=== PATIENT | female | born 1960 | race Caucasian/White ===

== ENCOUNTER 2016-08-08 11:04 | Emergency (ER) | payer MEDICARE, MEDICAID ==
--- NOTE | 2016-08-08 11:44 | Emergency Department Record ---
History of Present Illness - General Chief complaint: Dental Stated complaint: DENTAL/JAW PAIN Time Seen by Provider: 08/08/16 11:38 Source: Patient Mode of Arrival: Ambulatory Limitations: No limitations - History of Present Illness Initial comments: 56 yo female presents to ED with worsening pain to the lower right jaw. Patient reports that her pain symptoms have been present for several months associated with swelling of the right anterio-lateral neck. Patient reports undergoing imaging of the neck in April, was referred to ENT in [place] but she has cancelled her appointments x 2 because she was "scared". Patient denies health problems at her baseline, but reports that her pain symptoms have gotten worse prompting visit to the ED today. MD complaint: Other (dental/jaw pain) Onset/Timin -: Month(s) Location: Tooth # Severity: Moderate Severity scale (1-10): 8 Quality: Sharp Consistency: Constant Improves with: None Worsens with: None Context- Dental: History of dental caries - Related Data Previous Rx's Medication Instructions Recorded Clindamycin HCl [Cleocin HCl] 300 mg PO QID #28 capsule 08/08/16 Hydrocodone/Acetaminophen [[place] 1 tab PO Q6H PRN #15 tab 08/08/16 7.5mg/325mg] Allergies Allergy/AdvReac Type Severity Reaction Status Date / Time No Known Drug Allergies Allergy Verified 02/27/16 15:40 Travel Screening - Travel/Exposure Within Last 30 Days Have you traveled within the last 30 days?: No Review of Systems Constitutional: Denies: Chills, Fever, Malaise, Night sweats Eyes: Denies: Eye discharge, Eye pain ENT: Reports: Dental pain. Denies: Congestion, Ear pain Respiratory: Denies: Cough, Dyspnea Cardiovascular: Denies: Chest pain, Dyspnea on exertion Endocrine: Denies: Fatigue, Heat or cold intolerance Gastrointestinal: Denies: Abdominal pain, Nausea, Vomiting Genitourinary: Denies: Dysuria, Frequency, Hematuria, Incontinence Musculoskeletal: Denies: Arthralgia, Back pain Skin: Denies: Bruising, Change in color Neurological: Denies: Abnormal gait, Confusion, Headache, Seizure Psychiatric: Denies: Anxiety Hematological/Lymphatic: Denies: Anemia, Blood Clots Past Medical History - SOCIAL HISTORY Smoking Status: Current every day smoker Alcohol Use: None Drug Use: None - RESPIRATORY Hx Respiratory Disorders: No - CARDIOVASCULAR Hx Cardio Disorders: No - NEURO Hx Neuro Disorders: No - GI Hx GI Disorders: No - Hx Genitourinary Disorders: No - ENDOCRINE Hx Diabetes: No Hx Thyroid Disease: No - MUSCULOSKELETAL Hx Musculoskeletal Disorders: No - PSYCH Hx Psych Problems: Yes Hx Anxiety: Yes Hx Depression: Yes Comment:: bi-polar - HEMATOLOGY/ONCOLOGY Hx Hematology/Oncology Disorders: No Family Medical History Any Significant Family History?: Yes Hx Cancer: Grandparents Physical Exam - General General Appearance: Alert, Oriented x3, Cooperative, Moderate distress, Anxious , Other (cachetic appearing) Limitations: No limitations - Head Head exam: Atraumatic, Normocephalic Head exam detail: negative: Abrasion, Contusion, Dunn's sign, General tenderness, Hematoma, Laceration - Eye Eye exam: Normal appearance. negative: Conjunctival injection, Periorbital swelling, Periorbital tenderness, Scleral icterus - ENT ENT exam: Mucous membranes moist Ear exam: negative: Auricular hematoma, Auricular trauma Nasal Exam: negative: Active bleeding, Discharge, Dried blood, Foreign body Mouth exam: negative: Drooling, Laceration, Muffled voice, Tongue elevation Teeth exam: Dental caries, Other (Enlargement of the gingival tissue to the right lower oral cavity both anterior and posterior to the teeth extending along the mandible posteriorly, numerous dental caries are present.) Throat exam: negative: Tonsillar erythema, Tonsillomegaly, R peritonsillar mass , L peritonsillar mass - Neck Neck exam: Lymphadenopathy, Other (Extensive lymphadenopathy to the right anterior cervical region c/w mass or lesion). negative: Meningismus - Respiratory Respiratory exam: Normal lung sounds bilaterally. negative: Rales, Respiratory distress, Rhonchi, Stridor - Cardiovascular Cardiovascular Exam: Normal rhythm, Normal heart sounds, Tachycardia - GI/Abdominal GI/Abdominal exam: Soft. negative: Rebound, Rigid, Tenderness - Rectal Rectal exam: Deferred - exam: Deferred - Extremities Extremities exam: negative: Calf tenderness, Pedal edema, Tenderness - Back Back exam: Denies: CVA tenderness (R), CVA tenderness (L) - Neurological Neurological exam: Alert, Normal gait, Oriented X3 - Psychiatric Psychiatric exam: Anxious - Skin Skin exam: Normal color. negative: Abrasion Type of lesion: negative: abrasion Course Vital Signs 08/08/16 11:08 Temperature 98.7 F Pulse Rate 118 H Respiratory 24 Rate Blood Pressure 148/122 Pulse Ox 95 - Reevaluation(s) Reevaluation #1: 08/08/16 11:39 CT Neck with Contrast: 04/26/16 1.9 cm pathologic lymph node Asymmetry to the right posterior tongue base raising the suspicion for malignancy Findings c/w endodontal disease Patient seen and examined, recommended the patient call her ENT tomorroow to reschedule her biopsy of the right oral lesions. Will prescribe [place] and Clindamycin for possible dental abscess as well. Patient appears stable for discharge at this time. 08/08/16 11:59 Disposition Disposition: Discharge Clinical Impression: Mass of oral cavity Disposition: Home, Self-Care Condition: (2) Stable Instructions: Dental Abscess (ED) Additional Instructions: Return to ED if yoru symptoms worsen or if you have any concerns. Clindamycin and [place] as directed. Follow-up with your ENT in 1-3 days without fail for biopsy of your oral mass. Prescriptions: Clindamycin HCl [Cleocin HCl] 300 mg PO QID #28 capsule Hydrocodone/Acetaminophen [[place] 7.5mg/325mg] 1 tab PO Q6H PRN #15 tab PRN Reason: Pain - General Forms: Patient Portal Access Time of Disposition: 11:45
== END 2016-08-08 11:50 | disposition home or self-care (01) ==
LOC: ER 11:04
DX: K14.8 Other diseases of tongue (principal); Z72.0 Tobacco use
CPT/HCPCS: 99283

== ENCOUNTER 2016-09-14 20:35 | Emergency (ER) | payer MEDICARE, MEDICAID ==
--- NOTE | 2016-09-14 20:50 | Emergency Department Record ---
History of Present Illness - General Chief complaint: Pain Stated complaint: MOUTH PAIN Source: Patient, Family Mode of Arrival: Ambulatory Limitations: No limitations - History of Present Illness Initial comments: 56 yo female presents with a pain in the jaw for about a year and a half. The patient finally was referred to and ENT at [facility]. She was diagnosed with an oral squamous cell cancer. She is waiting for an appointment at [facility]. She has run out of her pain medications that she takes for the ongoing chronic pain. No fevers. She has chronic pain with touching the area or swallowing. No facial redness or pus drainage. Her PCP is in [place]. She has not seen her doctor for pain medications. Her ENT prescribed the Tramadol and Ibuprofen. MD Complaint: Other (jaw pain) -: Month(s) Location: Other (Jaw) Radiation: None Quality: Aching Consistency: Constant Improves with: Nothing Worsens with: Other (Eating) Associated Symptoms: Denies other symptoms - Related Data Home Medications Medication Instructions Recorded Confirmed Last Taken Ibuprofen [Ibuprofen] 800 mg PO TID 09/14/16 09/14/16 Unknown Tramadol HCl [Tramadol HCl] 50 mg PO Q6H 09/14/16 09/14/16 Unknown Previous Rx's Medication Instructions Recorded Ibuprofen [Motrin] 800 mg PO Q8H PRN #90 tab 09/14/16 Tramadol HCl 50 mg PO Q8H #90 tab 09/14/16 Allergies Allergy/AdvReac Type Severity Reaction Status Date / Time No Known Drug Allergies Allergy Verified 02/27/16 15:40 Review of Systems Constitutional: Denies: Chills, Fever, Malaise, Weakness Eyes: Denies: Eye discharge, Eye pain, Photophobia, Vision change ENT: Reports: Dental pain. Denies: Congestion, Ear pain, Epistaxis, Hearing loss, Throat pain Respiratory: Denies: Cough, Dyspnea, Hemoptysis, Stridor, Wheezes Cardiovascular: Denies: Chest pain, Palpitations, Syncope Endocrine: Denies: Fatigue, Polydipsia, Polyuria Gastrointestinal: Denies: Abdominal pain, Diarrhea, Nausea, Vomiting Genitourinary: Denies: Dysuria, Urgency Musculoskeletal: Denies: Arthralgia, Back pain, Joint swelling, Myalgia, Neck pain Skin: Denies: Bruising, Change in color, Rash Neurological: Denies: Headache Psychiatric: Denies: Anxiety Hematological/Lymphatic: Denies: Blood Clots, Easy bleeding, Easy bruising, Swollen glands Past Medical History - SOCIAL HISTORY Smoking Status: Current every day smoker Drug Use: None - RESPIRATORY Hx Respiratory Disorders: No - CARDIOVASCULAR Hx Cardio Disorders: No - NEURO Hx Neuro Disorders: No - GI Hx GI Disorders: No - Hx Genitourinary Disorders: No - ENDOCRINE Hx Diabetes: No Hx Thyroid Disease: No - MUSCULOSKELETAL Hx Musculoskeletal Disorders: No - PSYCH Hx Psych Problems: Yes Hx Anxiety: Yes Hx Depression: Yes Comment:: bi-polar - HEMATOLOGY/ONCOLOGY Hx Hematology/Oncology Disorders: No Family Medical History Hx Cancer: Grandparents Physical Exam - General General Appearance: Alert, Oriented x3, Cooperative, No acute distress Limitations: No limitations - Head Head exam: Normal inspection - Eye Eye exam: Normal appearance, PERRL - ENT ENT exam: Mucous membranes moist. negative: Normal exam, Normal orophraynx Ear exam: Normal external inspection. negative: External canal tenderness Nasal Exam: Normal inspection. negative: Discharge, Sinus tenderness Mouth exam: Normal external inspection, Tongue normal. negative: Drooling, Laceration, Muffled voice, Tongue elevation Teeth exam: Gingival enlargement, Other (Gingival enlargement right frontal area , no pus, no facial redness, right sided palpable lymph node that is palpable and chronic per patient). negative: Normal inspection Throat exam: Normal inspection. negative: Tonsillar erythema, Tonsillar exudate - Neck Neck exam: Lymphadenopathy, Tenderness. negative: Normal inspection, Meningismus - Respiratory Respiratory exam: Normal lung sounds bilaterally. negative: Respiratory distress - Cardiovascular Cardiovascular Exam: Regular rate, Normal rhythm, Normal heart sounds - GI/Abdominal GI/Abdominal exam: Soft. negative: Tenderness - Rectal Rectal exam: Deferred - exam: Deferred - Extremities Extremities exam: Normal inspection, Full ROM, Normal capillary refill. negative: Tenderness - Back Back exam: Reports: Normal inspection, Full ROM. Denies: Muscle spasm, Rash noted, Tenderness - Neurological Neurological exam: Alert, Normal gait, Oriented X3, Reflexes normal - Psychiatric Psychiatric exam: Normal affect, Normal mood - Skin Skin exam: Dry, Intact, Normal color, Warm Course Vital Signs 09/14/16 20:42 Pulse Rate [ 118 H Pulse Ox Probe] Respiratory 20 Rate Blood Pressure 127/106 [Left Arm] Pulse Ox 98 - Reevaluation(s) Reevaluation #1: I discussed refilling the pain medications with the patient and close follow up with her PCP I also discussed as her disease progresses she will need to consider presenting to the [facility] as well given that is were her treatment and specialist are located 09/14/16 20:50 Disposition Disposition: Discharge Clinical Impression: Mass of oral cavity Disposition: Home, Self-Care Condition: (1) Good Additional Instructions: Call [facility] tomorrow for your appointment time Return or go to [facility] if worsening symptoms or swelling Call your doctor tomorrow to coordinate you referral and your manager terminal pain control Prescriptions: Ibuprofen [Motrin] 800 mg PO Q8H PRN #90 tab PRN Reason: Pain - General Tramadol HCl 50 mg PO Q8H #90 tab Forms: Patient Portal Access Time of Disposition: 20:53
[2016-09-14] MEDS ORDERED: ONDANSETRON 4 MG ODT TABLET SL ONE (20:51)
[2016-09-14] MEDS ORDERED: HYDROMORPHONE HCL 1 MG/ML CPJ IM ONE (20:51)
== END 2016-09-14 21:38 | disposition home or self-care (01) ==
LOC: ER 20:35
DX: R22.0 Localized swelling, mass and lump, head (principal); R68.84 Jaw pain; C76.0 Malignant neoplasm of head, face and neck; F17.210 Nicotine dependence, cigarettes, uncomplicated
CPT/HCPCS: 99283 ×2; 96372; J1170

== ENCOUNTER 2016-12-09 18:29 | Emergency (ER) | payer MEDICARE, MEDICAID ==
[2016-12-09] MEDS ORDERED: FENTANYL PF 100MCG/2ML VIAL IVP ONE ×2 (18:39→22:20)
[2016-12-09] MEDS ORDERED: 0.9 % SODIUM CHLORIDE 1,000 ML BAG IV ONE (18:39)
[2016-12-09] MEDS ORDERED: ONDANSETRON HCL IV 4 MG/2 ML VIAL IVP ONE (18:39)
[2016-12-09] MEDS ORDERED: AMPICILLIN SODIUM/SULBACTAM NA 3 G in 0.9 % SODIUM CHLORIDE 100ML 100 ML IVPB ONE (18:46)
--- NOTE | 2016-12-09 18:46 | Emergency Department Record ---
History of Present Illness - General Chief complaint: Abscess Stated complaint: PAIN, POSS ABSCESS Time Seen by Provider: 12/09/16 18:38 Source: Patient, EMS Mode of Arrival: Ambulatory Limitations: No limitations - History of Present Illness Initial comments: 56 yo female presents with pain, facial swelling, drainage, redness. She has a known squamous cell cancer of the face that was diagnosed at [facility] after a prolonged time of neglecting the swelling by the patient. She was referred to oncology. She is getting a new PCP in [place]. She does not know her new PCP, she does not know any names of her specialist and does not have that information. She does say she was supposed to start radiation at [facility] but did not. She has had about 3 days of drainage from the the chin with pus. She was admitted to [facility] in September. complaint: Abscess/boil, Other -: Month(s) Location: Head, Face Severity: Severe Quality: Aching Consistency: Constant Improves with: None Associated symptoms: Chills, Other (Drainage from the cancer site) - Related Data Home Medications Medication Instructions Recorded Confirmed Last Taken Ibuprofen [Ibuprofen] 800 mg PO TID 09/14/16 12/09/16 Unknown Tramadol HCl [Tramadol HCl] 50 mg PO Q6H 09/14/16 12/09/16 Unknown Fentanyl 1 each TD ASDIR 12/09/16 12/09/16 Unknown Previous Rx's Medication Instructions Recorded Ibuprofen [Motrin] 800 mg PO Q8H PRN #90 tab 09/14/16 Tramadol HCl 50 mg PO Q8H #90 tab 09/14/16 Allergies Allergy/AdvReac Type Severity Reaction Status Date / Time No Known Drug Allergies Allergy Verified 12/09/16 19:04 Review of Systems Constitutional: Reports: Chills, Malaise Eyes: Denies: Eye discharge, Eye pain, Photophobia, Vision change ENT: Reports: As per HPI, Dental pain. Denies: Congestion, Ear pain, Epistaxis , Throat pain Respiratory: Denies: Cough, Dyspnea, Hemoptysis Cardiovascular: Denies: Chest pain, Palpitations, Syncope Endocrine: Denies: Fatigue Gastrointestinal: Denies: Abdominal pain, Diarrhea, Nausea, Vomiting Genitourinary: Denies: Dysuria, Urgency Musculoskeletal: Denies: Arthralgia, Back pain, Myalgia Skin: Reports: As per HPI, Change in color, Rash Neurological: Denies: Confusion, Headache, Numbness, Weakness Psychiatric: Denies: Anxiety Hematological/Lymphatic: Denies: Blood Clots, Easy bleeding, Easy bruising Past Medical History - SOCIAL HISTORY Smoking Status: Current every day smoker Drug Use: None - RESPIRATORY Hx Respiratory Disorders: No - CARDIOVASCULAR Hx Cardio Disorders: No - NEURO Hx Neuro Disorders: No - GI Hx GI Disorders: No - Hx Genitourinary Disorders: No - ENDOCRINE Hx Diabetes: No Hx Thyroid Disease: No - MUSCULOSKELETAL Hx Musculoskeletal Disorders: No - PSYCH Hx Psych Problems: Yes Hx Anxiety: Yes Hx Depression: Yes Comment:: bi-polar - HEMATOLOGY/ONCOLOGY Hx Hematology/Oncology Disorders: No Family Medical History Hx Cancer: Grandparents Physical Exam - General General Appearance: Alert, Oriented x3, Cooperative, No acute distress, Anxious Limitations: No limitations - Head Head exam: Atraumatic. negative: Normal inspection - Eye Eye exam: Normal appearance. negative: Conjunctival injection - ENT ENT exam: Mucous membranes dry. negative: Normal exam, Mucous membranes moist, Normal orophraynx (moderate jaw swelling, warmth, erythema, chin with 2cm abscess like area with pus) Ear exam: Normal external inspection Nasal Exam: Normal inspection. negative: Discharge, Sinus tenderness Mouth exam: Tongue normal. negative: Normal external inspection Teeth exam: negative: Normal inspection Throat exam: negative: Normal inspection - Neck Neck exam: Lymphadenopathy. negative: Normal inspection - Respiratory Respiratory exam: Normal lung sounds bilaterally. negative: Respiratory distress - Cardiovascular Cardiovascular Exam: Regular rate, Normal rhythm, Normal heart sounds - GI/Abdominal GI/Abdominal exam: Soft. negative: Tenderness - Rectal Rectal exam: Deferred - exam: Deferred - Extremities Extremities exam: Normal inspection, Full ROM, Normal capillary refill. negative: Tenderness - Back Back exam: Reports: Normal inspection, Full ROM. Denies: Muscle spasm, Rash noted, Tenderness - Neurological Neurological exam: Alert, Normal gait, Oriented X3 - Psychiatric Psychiatric exam: Normal affect, Normal mood - Skin Skin exam: Dry, Intact, Normal color, Warm Course - Reevaluation(s) Reevaluation #1: 12/09/16 19:00 [facility] Records reviewed from 09/23/16 Dr [facility] summary. Squamous Cell Cancer 12/09/16 22:02 Reevaluation #2: The labs were reviewed The WBC count is 13.2 and the CRP is elevated at 5 GFR >60 12/09/16 19:28 Reevaluation #3: CT reviewed Significant destructive lesion of the jaw, significant inflammatory changes and possible necrotic areas as well. May represent abscess. [facility] Call Called. 12/09/16 21:38 Reevaluation #4: I SW with [facility] ER to Dr Crook. 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, Abscess, Cellulitis and abscess of face Disposition: Acute Care Hospital Transfer Transfer To: [facility] Reason For Transfer: Facial Cancer, Facial abscess Accepting Physician: Ambreen Time Discussed w/Accepting Physician: 22:11 Condition: (2) Stable Forms: Patient Portal Access Time of Disposition: 22:11 Quality - Quality Measures Quality Measures: N/A - Blood Pressure Screening View Details: Yes Does Patient Have Any of the Following: No Blood Pressure Classification: Hypertensive Reading Systolic Measurement: 146 Diastolic Measurement: 78 Screening for High Blood Pressure: < Pre-Hypertensive BP, F/U Documented > [ [id number]] Pre-Hypertensive Follow-up Interventions: Referral to alternative/primary care provider.
[2016-12-09 19:03] LABS: BASO % 0.2 % (0-6); HEMATOCRIT 36.4 % (35.0-47.0); HEMOGLOBIN 11.8 gm/dl (11.6-16.0); MEAN CELL VOLUME 86.1 fl (81-97); MEAN CORPUSCULAR HEMOGLOBIN 27.9 pg (27-33); MEAN CORPUSCULAR HGB CONC 32.4 g/dl (32-36); MEAN PLATELET VOLUME 9.1 fl (7.4-10.4); MONO % 4.8 % (0-9); PLATELET COUNT 550 K/uL (130-400); RED BLOOD COUNT 4.23 M/uL (3.80-5.40); RED CELL DISTRIBUTION WIDTH 14.1 % (11.5-14.5); WHITE BLOOD COUNT W/O DIFF 13.2 K/uL (4.2-12.2)
[2016-12-09 19:18] LABS: INR 1.08; PARTIAL THROMBOPLASTIN TIME 30.7 SECONDS (24.5-39.1); PROTHROMBIN TIME (PATIENT) 11.7 SECONDS (9.5-12.1)
[2016-12-09 19:19] LABS: ALB/GLOB RATIO 1.1 (1.1-1.8); ALBUMIN 4.3 gm/dL (3.5-5.0); ALKALINE PHOSPHATASE 96 U/L (38-126); ALT/SGPT 35 U/L (9-52); ANION GAP 13.9 (7-16); AST/SGOT 19 U/L (14-36); BILIRUBIN,TOTAL 0.54 mg/dL (0.2-1.3); BLOOD UREA NITROGEN 11 mg/dL (7-17); CARBON DIOXIDE 20.1 mmol/L (22-30); CREATININE 0.5 mg/dL (0.52-1.04); EST GLOMERULAR FILTRATION RATE > 60 ml/min; GLUCOSE,RANDOM 119 mg/dL (70-110); TOTAL PROTEIN 8.2 gm/dL (6.3-8.2)
--- NOTE | 2016-12-11 22:35 | CT SCAN REPORT ---
EXAM: CT SCAN MAXILLOFACIAL W CONTRAST HISTORY: ORAL AND JAW CANCER. TECHNIQUE: Axial CT images of the facial bones are obtained with coronal and sagittal reconstructions. 100 mL Omnipaque-300 contrast was also administered intravenously. COMPARISON: None. FINDINGS: There is an expansile, destructive mass associated with the mandible and extending to the right of midline. Multiple absent teeth. Extensive associated soft tissue swelling. There is also extensive associated/adjacent adenopathy, which is partially visualized in the right face and neck. Some of the nodes appear partially calcified. The mass itself is also likely partially calcified. Borders of the mass are not defined. The largest lymph node measures 3.1 x 2.6 cm and appears partially necrotic. No discrete or defined abscess, however. The airway remains patent. Limited evaluation of brain parenchyma is unremarkable. There are also nonenlarged but conspicuous lymph nodes in the jugulodigastric chain. IMPRESSION: LARGE, POORLY DEFINED EXPANSILE AND HETEROGENEOUS-APPEARING MASS OCCUPYING THE MAJORITY OF THE MANDIBLE WITH ASSOCIATED NECROTIC ADENOPATHY. SUBCUTANEOUS INFLAMMATORY CHANGE AND EDEMA LIKELY REFLECTS CELLULITIS. THERE IS LIKELY A COMPONENT OF ASSOCIATED PHLEGMON, HOWEVER, NO DEFINITIVE OR DEFINED ABSCESS. JOB NUMBER: [id number] [facility]
== END 2016-12-09 22:35 | disposition short-term general hospital (02) ==
LOC: ER 18:29
DX: L02.01 Cutaneous abscess of face (principal); C44.329 Squamous cell carcinoma of skin of other parts of face
CPT/HCPCS: 99285 ×2; 96376; 96374; 96375; 85025; 85730; 85610; 86140; 80053; 70487; Q9967; J0295; J2405; J3010; J7030